=== PATIENT | female | born 1945 | race Caucasian/White ===

== ENCOUNTER 2017-11-29 10:02 | Day surgery (SDC) | payer MEDICARE ==
[~2017-11-29] VITALS: Ht 160 cm; Wt 103.6 kg
[2017-11-29] MEDS ORDERED: fentaNYL/PF 50MCG/1 ML 2ML syringe ONE (10:23)
[2017-11-29] MEDS ORDERED: LIDOcaine Viscous 15ml cup ONE (10:24)
[2017-11-29] MEDS ORDERED: MIDAZolam 5mg/5ml vial ONE (10:24)
[2017-11-29] MEDS ORDERED: HYDR-565 PO (10:38)
[2017-11-29] MEDS ORDERED: DIPH25CA83 PO (10:40)
[2017-11-29] MEDS ORDERED: CHOL100062 PO (10:40)
[2017-11-29] MEDS ORDERED: GLYB5TAB7 PO (10:40)
[2017-11-29] MEDS ORDERED: LOSA1TAB39 PO (10:42)
[2017-11-29 10:45] VITALS: BP 148/64
[2017-11-29] MEDS ORDERED: METO50TA17 PO (10:45)
[2017-11-29] MEDS ORDERED: SIMV20TA5 PO (10:46)
[2017-11-29] MEDS ORDERED: COU1T PO (10:46)
[2017-11-29] MEDS ORDERED: CLIN-79 PO (10:47)
[2017-11-29 11:08] VITALS: BP 137/68
[2017-11-29 11:18] VITALS: BP 130/70
[2017-11-29 11:28] VITALS: BP 122/72
[2017-11-29 11:38] VITALS: BP 118/64
[2017-11-29 11:48] VITALS: BP 121/80
== END 2017-11-29 11:50 | disposition home or self-care (01) ==
LOC: GI LAB 10:02
PROVIDERS: ATTEND Internal Medicine Gastroenterology
DX: K44.9 Diaphragmatic hernia without obstruction or gangrene (principal); K31.89 Other diseases of stomach and duodenum; I10 Essential (primary) hypertension; I48.91 Unspecified atrial fibrillation; E11.9 Type 2 diabetes mellitus without complications; Z90.49 Acquired absence of other specified parts of digestive tract; Z72.89 Other problems related to lifestyle; Z79.82 Long term (current) use of aspirin; Z79.4 Long term (current) use of insulin; Z79.01 Long term (current) use of anticoagulants; Z88.6 Allergy status to analgesic agent; Z88.1 Allergy status to other antibiotic agents; Z88.8 Allergy status to other drugs, medicaments and biological substances; Z79.899 Other long term (current) drug therapy; Z98.890 Other specified postprocedural states; Z87.891 Personal history of nicotine dependence
CPT/HCPCS: 43235; G0500; J2250; J3010; J7030; A4620

== ENCOUNTER 2017-12-02 19:18 | Inpatient (IN) | payer MEDICARE ==
[~2017-12-02] VITALS: Ht 160 cm; Wt 100.0 kg
[~2017-12-02 19:18] MED LIST: CHOL100062 PO; CLIN-79 PO; COU1T PO; DIPH25CA83 PO; GLYB5TAB7 PO; HYDR-565 PO; LOSA1TAB39 PO; METO50TA17 PO; SIMV20TA5 PO
[2017-12-02] MEDS ORDERED: pantoprazole IV 80 MG in normal saline 100ml IV soln 100 ML IV ONE (20:15)
[2017-12-02] MEDS: pantoprazole 40MG/NS 100ML BAG 100 ML IV SCH ×2 (20:35→21:20)
[2017-12-02 20:38] LABS: BASOPHILS % (AUTO) 0.6 % (0-1); EOSINOPHILS # (AUTO) 0.2 X10'3 (0-0.9); HEMATOCRIT 27.1 % (35.0-45.0); HEMOGLOBIN 9.4 g/dl (12.0-16.0); LYMPHOCYTES # (AUTO) 1.3 X10'3 (1.1-4.8); LYMPHOCYTES % (AUTO) 16.7 % (21-51); MEAN CORPUSCULAR HGB CONC 34.7 % (33.0-36.5); MEAN CORPUSCULAR VOLUME 92.2 FL (78-98); MEAN PLATELET VOLUME 7.8 FL (7.4-10.4); MONOCYTES # (AUTO) 0.4 X10'3 (0-0.9); MONOCYTES % (AUTO) 4.9 % (2-12); NEUTROPHILS # (AUTO) 5.7 X10'3 (1.8-7.7); NEUTROPHILS % (AUTO) 74.8 % (42-75); PLATELET COUNT 277 X10'3 (140-440); RED BLOOD COUNT 2.94 X10'6 (4.20-5.60); RED CELL DISTRIBUTION WIDTH 17.6 % (11.5-14.5); WHITE BLOOD COUNT 7.7 X10'3 (4.5-11.0)
[2017-12-02 20:50] LABS: PARTIAL THROMBOPLASTIN TIME 40 SECONDS (22-32); PROTHROMBIN TIME 29.9 SECONDS (9.0-12.0)
[2017-12-02 20:53] LABS: ALANINE AMINOTRANSFERASE 19 U/L (12-78); ALBUMIN 3.2 G/DL (3.4-5.0); ALBUMIN/GLOBULIN RATIO 0.9 (1.1-1.5); ALKALINE PHOSPHATASE 67 IU/L (46-116); ANION GAP 10 (8-16); ASPARTATE AMINO TRANSFERASE 16 U/L (10-37); BILIRUBIN,TOTAL 0.7 MG/DL (0.1-1.0); BLOOD UREA NITROGEN 27 MG/DL (7-18); BUN/CREATININE RATIO 21.1 (6.6-38.0); CALCIUM 8.7 MG/DL (8.5-10.1); CHLORIDE 100 MMOL/L (99-107); CREATININE 1.28 MG/DL (0.40-0.90); GLUCOSE 327 MG/DL (70-104); POTASSIUM 4.3 MMOL/L (3.5-5.1); SODIUM 136 MMOL/L (135-145); TOTAL CARBON DIOXIDE 25.6 MMOL/L (24-32); TOTAL PROTEIN 6.9 G/DL (6.4-8.2); eGFR 41 ML/MIN
[2017-12-02] MEDS ORDERED: pantoprazole 40MG/NS 100ML BAG 100 ML IV ONE (21:05)
[2017-12-02] MEDS ORDERED: ondansetron/PF 4mg/2ml inj IV PRN (22:00)
[2017-12-02] MEDS ORDERED: acetaminophen 325mg tablet PO PRN ×2 (22:00)
[2017-12-02] MEDS ORDERED: magnesium hydroxide 30ml (MOM) UD suspension PO PRN (22:00)
[2017-12-02] MEDS ORDERED: mag hydrox/Alum hydrox/simeth 30ml oral suspension PO PRN (22:00)
[2017-12-02] MEDS ORDERED: diphenhydrAMINE 25mg capsule PO PRN (22:05)
[2017-12-02] MEDS ORDERED: insulin Lispro (HumaLOG) vial - multi-dose SQ SCH (22:05)
[2017-12-02] MEDS ORDERED: dextrose 50%-water 50ml dispensing syringe IV PRN ×2 (22:05)
[2017-12-02] MEDS ORDERED: dextrose ORAL solution 15 GM/59 ML bottle PO PRN ×2 (22:05)
[2017-12-02] MEDS ORDERED: glucagon, human recombinant 1mg kit SUBCUT PRN (22:05)
[2017-12-02] MEDS ORDERED: cyclobenzaprine 10mg tablet PO PRN (22:05)
[2017-12-02] MEDS ORDERED: MESSAGE TO PHARMACY PO ONE (22:05)
[2017-12-02] MEDS ORDERED: CHOL10002 PO (22:29)
[2017-12-02] MEDS: normal saline 1000ml 1,000 ML IV SCH (22:30)
[2017-12-02] MEDS: atorvastatin 10mg tablet PO SCH (22:43)
[2017-12-02] MEDS ORDERED: insulin glargine (Lantus) pen - multi-dose SQ ONE (22:49)
[2017-12-02] MEDS: insulin glargine (Lantus) pen - multi-dose SQ SCH (23:02)
[2017-12-03] MEDS: HYDROcodone/acetaminophen 10/325mg tab PO SCH ×4 (02:07→20:46)
[2017-12-03 06:10] LABS: BASOPHILS % (AUTO) 0.4 % (0-1); EOSINOPHILS # (AUTO) 0.3 X10'3 (0-0.9); EOSINOPHILS % (AUTO) 4.7 % (0-6); HEMOGLOBIN 8.6 g/dl (12.0-16.0); LYMPHOCYTES # (AUTO) 1.7 X10'3 (1.1-4.8); LYMPHOCYTES % (AUTO) 25.6 % (21-51); MEAN CORPUSCULAR HEMOGLOBIN 31.6 PG (27.0-31.0); MEAN CORPUSCULAR HGB CONC 34.3 % (33.0-36.5); MEAN CORPUSCULAR VOLUME 92.2 FL (78-98); MEAN PLATELET VOLUME 7.5 FL (7.4-10.4); MONOCYTES # (AUTO) 0.5 X10'3 (0-0.9); MONOCYTES % (AUTO) 7.1 % (2-12); NEUTROPHILS # (AUTO) 4.1 X10'3 (1.8-7.7); NEUTROPHILS % (AUTO) 62.2 % (42-75); PLATELET COUNT 245 X10'3 (140-440); RED BLOOD COUNT 2.71 X10'6 (4.20-5.60); WHITE BLOOD COUNT 6.6 X10'3 (4.5-11.0)
[2017-12-03 06:23] LABS: PROTHROMBIN TIME 30.3 SECONDS (9.0-12.0)
[2017-12-03 06:54] LABS: ALBUMIN 3.1 G/DL (3.4-5.0); ANION GAP 9 (8-16); BLOOD UREA NITROGEN 21 MG/DL (7-18); BUN/CREATININE RATIO 18.4 (6.6-38.0); CALCIUM 8.6 MG/DL (8.5-10.1); CHLORIDE 105 MMOL/L (99-107); CREATININE 1.14 MG/DL (0.40-0.90); GLUCOSE 153 MG/DL (70-104); POTASSIUM 4.1 MMOL/L (3.5-5.1); SODIUM 140 MMOL/L (135-145); TOTAL CARBON DIOXIDE 25.9 MMOL/L (24-32); eGFR 47 ML/MIN
[2017-12-03 06:58] LABS: CLARITY,URINE SLIGHTLY CLOUDY (Clear); COLOR,URINE YELLOW (Yellow); GLUCOSE, URINE NEGATIVE (Neg); KETONES,URINE NEGATIVE (Neg); LEUKOCYTE ESTERASE ,URINE SMALL (Neg); NITRITES, URINE NEGATIVE (Neg); OCCULT BLOOD,URINE NEGATIVE (Neg); PH,URINE 5.5 (4.8-8.0); PROTEIN,URINE NEGATIVE (Neg); UROBILINOGEN,URINE 0.2 E.U/dL (0.2-1.0)
[2017-12-03 07:03] LABS: UA COLLECTION TYPE CLN CATCH MIDSTREAM
[2017-12-03 07:08] LABS: BACTERIA,URINE FEW /HPF (Neg); RBC,URINE 0-2 /HPF (0-2); SQUAMOUS EPITHELIAL CELL,UR MANY /LPF (FEW); WBC,URINE 0-4 /HPF (0-4)
[2017-12-03] MEDS: normal saline 1000ml 1,000 ML IV SCH ×2 (07:57→20:47)
[2017-12-03] MEDS: HYDROchlorothiazide 25mg tablet PO SCH (08:32)
[2017-12-03] MEDS: metoprolol tartrate 50mg tablet PO SCH (08:32)
[2017-12-03] MEDS: losartan 50mg tablet PO SCH (08:32)
[2017-12-03] MEDS ORDERED: CYCL-1 (09:22)
[2017-12-03 19:30] VITALS: BP 106/50
[2017-12-03] MEDS: atorvastatin 10mg tablet PO SCH (20:46)
[2017-12-03] MEDS: insulin glargine (Lantus) pen - multi-dose SQ SCH (22:15)
[2017-12-04] VITALS: BP 141/50
[2017-12-04] MEDS: HYDROcodone/acetaminophen 10/325mg tab PO SCH ×4 (02:00→20:06)
[2017-12-04] MEDS: normal saline 1000ml 1,000 ML IV SCH ×3 (03:57→20:06)
[2017-12-04 05:13] LABS: BASOPHILS % (AUTO) 0.7 % (0-1); EOSINOPHILS # (AUTO) 0.3 X10'3 (0-0.9); EOSINOPHILS % (AUTO) 5.1 % (0-6); HEMATOCRIT 24.4 % (35.0-45.0); HEMOGLOBIN 8.3 g/dl (12.0-16.0); LYMPHOCYTES # (AUTO) 1.7 X10'3 (1.1-4.8); LYMPHOCYTES % (AUTO) 32.6 % (21-51); MEAN CORPUSCULAR HEMOGLOBIN 31.5 PG (27.0-31.0); MEAN CORPUSCULAR VOLUME 92.5 FL (78-98); MEAN PLATELET VOLUME 8.5 FL (7.4-10.4); MONOCYTES # (AUTO) 0.4 X10'3 (0-0.9); MONOCYTES % (AUTO) 7.9 % (2-12); NEUTROPHILS # (AUTO) 2.8 X10'3 (1.8-7.7); NEUTROPHILS % (AUTO) 53.7 % (42-75); PLATELET COUNT 225 X10'3 (140-440); RED BLOOD COUNT 2.64 X10'6 (4.20-5.60); RED CELL DISTRIBUTION WIDTH 16.8 % (11.5-14.5); WHITE BLOOD COUNT 5.2 X10'3 (4.5-11.0)
[2017-12-04 05:22] LABS: INR 2.8 INR; PROTHROMBIN TIME 28.2 SECONDS (9.0-12.0)
[2017-12-04 05:29] LABS: ALBUMIN 2.9 G/DL (3.4-5.0); ANION GAP 8 (8-16); BLOOD UREA NITROGEN 15 MG/DL (7-18); BUN/CREATININE RATIO 12.9 (6.6-38.0); CALCIUM 8.4 MG/DL (8.5-10.1); CHLORIDE 106 MMOL/L (99-107); CREATININE 1.16 MG/DL (0.40-0.90); GLUCOSE 109 MG/DL (70-104); POTASSIUM 4.2 MMOL/L (3.5-5.1); SODIUM 141 MMOL/L (135-145); TOTAL CARBON DIOXIDE 27.1 MMOL/L (24-32); eGFR 46 ML/MIN
[2017-12-04] MEDS ORDERED: heparin sodium, porcine/PF 100unit/ml 5ML syringe ONE (06:54)
[2017-12-04 07:00] VITALS: BP 121/53
[2017-12-04] MEDS: metoprolol tartrate 50mg tablet PO SCH (09:30)
[2017-12-04] MEDS: losartan 50mg tablet PO SCH (09:30)
[2017-12-04] MEDS: HYDROchlorothiazide 25mg tablet PO SCH (09:30)
[2017-12-04 12:00] VITALS: BP 128/49
[2017-12-04 12:12] LABS: OCCULT BLOOD STOOL POSITIVE (Neg)
[2017-12-04 20:00] VITALS: BP 110/55
[2017-12-04] MEDS: atorvastatin 10mg tablet PO SCH (20:06)
[2017-12-04] MEDS: insulin glargine (Lantus) pen - multi-dose SQ SCH (21:00)
[2017-12-05] VITALS: BP 109/46
[2017-12-05] MEDS: HYDROcodone/acetaminophen 10/325mg tab PO SCH ×2 (02:32→07:22)
[2017-12-05 05:00] LABS: BASOPHILS % (AUTO) 0.4 % (0-1); EOSINOPHILS # (AUTO) 0.2 X10'3 (0-0.9); EOSINOPHILS % (AUTO) 4.3 % (0-6); HEMATOCRIT 24.9 % (35.0-45.0); HEMOGLOBIN 8.5 g/dl (12.0-16.0); LYMPHOCYTES # (AUTO) 1.5 X10'3 (1.1-4.8); LYMPHOCYTES % (AUTO) 31.3 % (21-51); MEAN CORPUSCULAR HEMOGLOBIN 31.8 PG (27.0-31.0); MEAN CORPUSCULAR VOLUME 93.3 FL (78-98); MEAN PLATELET VOLUME 8.2 FL (7.4-10.4); MONOCYTES # (AUTO) 0.4 X10'3 (0-0.9); MONOCYTES % (AUTO) 8.1 % (2-12); NEUTROPHILS # (AUTO) 2.6 X10'3 (1.8-7.7); NEUTROPHILS % (AUTO) 55.9 % (42-75); PLATELET COUNT 222 X10'3 (140-440); RED BLOOD COUNT 2.67 X10'6 (4.20-5.60); WHITE BLOOD COUNT 4.6 X10'3 (4.5-11.0)
[2017-12-05 05:10] LABS: PROTHROMBIN TIME 30.3 SECONDS (9.0-12.0)
[2017-12-05 05:20] LABS: ANION GAP 10 (8-16); BLOOD UREA NITROGEN 13 MG/DL (7-18); BUN/CREATININE RATIO 11.3 (6.6-38.0); CALCIUM 8.5 MG/DL (8.5-10.1); CHLORIDE 106 MMOL/L (99-107); CREATININE 1.15 MG/DL (0.40-0.90); GLUCOSE 107 MG/DL (70-104); POTASSIUM 3.8 MMOL/L (3.5-5.1); SODIUM 142 MMOL/L (135-145); TOTAL CARBON DIOXIDE 26.4 MMOL/L (24-32); eGFR 46 ML/MIN
[2017-12-05] MEDS: metoprolol tartrate 50mg tablet PO SCH (07:21)
[2017-12-05] MEDS: losartan 50mg tablet PO SCH (07:21)
[2017-12-05] MEDS: HYDROchlorothiazide 25mg tablet PO SCH (07:21)
[2017-12-05 07:28] VITALS: BP 122/62
[2017-12-05] MEDS ORDERED: ESOM40CA30 PO (08:58)
== END 2017-12-05 10:20 | disposition home or self-care (01) | DRG 378 ==
LOC: ER 19:19 → ED HOLD 21:57 → SUR 3N 12-03 19:32
PROVIDERS: ADMIT Internal Medicine; ATTEND Internal Medicine
DX: K92.2 Gastrointestinal hemorrhage, unspecified (principal); D68.51 Activated protein C resistance; N17.9 Acute kidney failure, unspecified; E11.22 Type 2 diabetes mellitus with diabetic chronic kidney disease; I48.91 Unspecified atrial fibrillation; E86.0 Dehydration; E78.5 Hyperlipidemia, unspecified; I12.9 Hypertensive chronic kidney disease with stage 1 through stage 4 chronic kidney disease, or unspecified chronic kidney disease; N18.9 Chronic kidney disease, unspecified; Z79.84 Long term (current) use of oral hypoglycemic drugs; Z79.899 Other long term (current) drug therapy; Z79.01 Long term (current) use of anticoagulants; Z88.6 Allergy status to analgesic agent; Z88.1 Allergy status to other antibiotic agents; Z88.5 Allergy status to narcotic agent; Z88.8 Allergy status to other drugs, medicaments and biological substances; Z82.3 Family history of stroke
CPT/HCPCS: 36415; 71045; 78278; 80048; 80053; 81001; 82272; 82948; 85025; 85610; 85730; 86885; 86900; 86901; 87070; 93005; 96374; 96376; 99285; A9560; C9113; J1642; J1815; J7030

== ENCOUNTER 2018-07-08 09:00 | Day surgery (SDC) | payer MEDICARE ==
[2018-07-08] VITALS (9 sets, daily range): BP systolic 104–136; BP diastolic 66–114
[~2018-07-08] VITALS: Ht 167.6 cm; Wt 105.4 kg
[~2018-07-08 09:00] MED LIST changes: +CHOL10002 PO; -CHOL100062 PO; -CLIN-79 PO; -COU1T PO; +CYCL-1; +ESOM40CA30 PO; -HYDR-565 PO
[2018-07-08] MEDS ORDERED: sod bicarbonate 150mEq in D5W 1,150 ML IV ONE (09:25)
[2018-07-08] MEDS ORDERED: diphenhydrAMINE 25mg capsule PO PRN (09:25)
[2018-07-08] MEDS ORDERED: midazolam 2 mg/2 ml injection ONE ×2 (09:39→10:57)
[2018-07-08] MEDS ORDERED: fentaNYL/PF 50MCG/1 ML 2ML syringe ONE (09:39)
[2018-07-08] MEDS ORDERED: iohexol 350 MG/ML 50ML vial IV ONE (09:40)
[2018-07-08] MEDS ORDERED: normal saline 1000ml 1,000 ML IV SCH (09:40)
[2018-07-08] MEDS ORDERED: LIDOcaine 1% 30ml preserv. free vial ONE (09:40)
[2018-07-08] MEDS ORDERED: iohexol 350MG/ML 100ml bottle IV ONE (09:40)
[2018-07-08] MEDS ORDERED: COU2.5T PO (09:43)
[2018-07-08] MEDS ORDERED: LASIX PO (09:45)
[2018-07-08] MEDS ORDERED: POTA8CAP9 PO (09:47)
[2018-07-08] MEDS ORDERED: MAGN400C PO (09:48)
[2018-07-08] MEDS ORDERED: MELA3TAB PO (09:48)
[2018-07-08] MEDS ORDERED: OMEP40CA37 PO (09:51)
[2018-07-08 09:54] LABS: ALBUMIN 3.5 G/DL (3.4-5.0); ANION GAP 9 (8-16); BLOOD UREA NITROGEN 27 MG/DL (7-18); BUN/CREATININE RATIO 17.5 (6.6-38.0); CALCIUM 9.5 MG/DL (8.5-10.1); CHLORIDE 98 MMOL/L (99-107); CREATININE 1.54 MG/DL (0.40-0.90); GLUCOSE 234 MG/DL (70-104); MAGNESIUM 1.8 MG/DL (1.5-2.4); POTASSIUM 3.5 MMOL/L (3.5-5.1); SODIUM 138 MMOL/L (135-145); TOTAL CARBON DIOXIDE 31.2 MMOL/L (24-32); eGFR 33 ML/MIN
[2018-07-08 09:56] LABS: BASOPHILS # (AUTO) 0.1 X10'3 (0-0.2); EOSINOPHILS # (AUTO) 0.2 X10'3 (0-0.9); EOSINOPHILS % (AUTO) 2.9 % (0-6); HEMATOCRIT 34.4 % (35.0-45.0); LYMPHOCYTES # (AUTO) 1.1 X10'3 (1.1-4.8); LYMPHOCYTES % (AUTO) 18.3 % (21-51); MEAN CORPUSCULAR HEMOGLOBIN 26.6 PG (27.0-31.0); MEAN CORPUSCULAR HGB CONC 31.9 % (33.0-36.5); MEAN CORPUSCULAR VOLUME 83.4 FL (78-98); MEAN PLATELET VOLUME 9.2 FL (7.4-10.4); MONOCYTES # (AUTO) 0.4 X10'3 (0-0.9); NEUTROPHILS # (AUTO) 4.3 X10'3 (1.8-7.7); NEUTROPHILS % (AUTO) 71.8 % (42-75); PLATELET COUNT 217 X10'3 (140-440); RED BLOOD COUNT 4.13 X10'6 (4.20-5.60); RED CELL DISTRIBUTION WIDTH 28.4 % (11.5-14.5); WHITE BLOOD COUNT 6.1 X10'3 (4.5-11.0)
[2018-07-08 10:03] LABS: INR 1.6 INR; PROTHROMBIN TIME 16.3 SECONDS (9.0-12.0)
[2018-07-08 10:30] LABS: PLATELET ESTIMATE NORMAL
[2018-07-08 10:31] LABS: ANISOCYTOSIS 3+; MICROCYTOSIS 1+
[2018-07-08] MEDS ORDERED: HYDROcodone/acetaminophen 10/325mg tab PO ONE (12:30)
== END 2018-07-08 15:10 | disposition home or self-care (01) ==
LOC: SSTAY O 09:00
PROVIDERS: ATTEND Internal Medicine Cardiovascular Disease
DX: I25.10 Atherosclerotic heart disease of native coronary artery without angina pectoris (principal); I35.0 Nonrheumatic aortic (valve) stenosis; I48.91 Unspecified atrial fibrillation; I45.81 Long QT syndrome; I10 Essential (primary) hypertension; E78.5 Hyperlipidemia, unspecified; E11.9 Type 2 diabetes mellitus without complications; D68.51 Activated protein C resistance; Z87.891 Personal history of nicotine dependence; Z90.49 Acquired absence of other specified parts of digestive tract; Z87.19 Personal history of other diseases of the digestive system; Z72.89 Other problems related to lifestyle; Z86.11 Personal history of tuberculosis; Z79.01 Long term (current) use of anticoagulants; Z88.0 Allergy status to penicillin; Z88.5 Allergy status to narcotic agent; Z88.1 Allergy status to other antibiotic agents; Z88.6 Allergy status to analgesic agent; Z88.8 Allergy status to other drugs, medicaments and biological substances; Z79.899 Other long term (current) drug therapy; Z98.890 Other specified postprocedural states
CPT/HCPCS: 36415; 80048; 82948; 83735; 85025; 85610; 93005; 93460; 99152; 99153; A6257; C1760; J1644; J2250; J3010; J3490; J7030; Q0163; Q9967; A4620; C1769; C1894

== ENCOUNTER 2019-03-10 21:22 | Emergency (ER) | payer MEDICARE ==
[~2019-03-10] VITALS: Ht 170.2 cm; Wt 105.5 kg
[~2019-03-10 21:22] MED LIST changes: +COU2.5T PO; -DIPH25CA83 PO; -ESOM40CA30 PO; +LASIX PO; -LOSA1TAB39 PO; +MAGN400C PO; +MELA3TAB64 PO; +OMEP40CA13 PO; +POTA8CAP20 PO
--- NOTE | 2019-03-10 22:32 | NUR ---
Patient is A&O x2, PATEL and is resting comfortably on gurney. Family is at the bedside.
[2019-03-11 00:02] LABS: CLARITY,URINE CLEAR (Clear); COLOR,URINE YELLOW (Yellow); GLUCOSE, URINE 500 mg/dl (Neg); KETONES,URINE NEGATIVE (Neg); LEUKOCYTE ESTERASE ,URINE NEGATIVE (Neg); NITRITES, URINE NEGATIVE (Neg); OCCULT BLOOD,URINE NEGATIVE (Neg); PROTEIN,URINE NEGATIVE (Neg); UROBILINOGEN,URINE 0.2 E.U/dL (0.2-1.0)
[2019-03-11 00:07] LABS: UA COLLECTION TYPE CLN CATCH MIDSTREAM
--- NOTE | 2019-03-11 00:09 | NUR ---
Patient is resting comfortably on gurney, family is at bedside.
[2019-03-11 00:22] LABS: BASOPHILS % (AUTO) 0.8 % (0-1); EOSINOPHILS # (AUTO) 0.1 X10'3 (0-0.9); EOSINOPHILS % (AUTO) 2.8 % (0-6); HEMATOCRIT 32.8 % (35.0-45.0); HEMOGLOBIN 11.2 g/dl (12.0-16.0); LYMPHOCYTES # (AUTO) 1.2 X10'3 (1.1-4.8); MEAN CORPUSCULAR HEMOGLOBIN 32.3 PG (27.0-31.0); MEAN CORPUSCULAR VOLUME 94.8 FL (78-98); MEAN PLATELET VOLUME 7.8 FL (7.4-10.4); MONOCYTES # (AUTO) 0.4 X10'3 (0-0.9); MONOCYTES % (AUTO) 8.2 % (2-12); NEUTROPHILS # (AUTO) 2.8 X10'3 (1.8-7.7); NEUTROPHILS % (AUTO) 62.2 % (42-75); PLATELET COUNT 256 X10'3 (140-440); RED BLOOD COUNT 3.46 X10'6 (4.20-5.60); RED CELL DISTRIBUTION WIDTH 23.6 % (11.5-14.5); WHITE BLOOD COUNT 4.5 X10'3 (4.5-11.0)
[2019-03-11 00:36] LABS: PARTIAL THROMBOPLASTIN TIME 35 SECONDS (22-32)
[2019-03-11 00:49] LABS: OCCULT BLOOD STOOL POSITIVE (Neg)
[2019-03-11 00:58] LABS: ALANINE AMINOTRANSFERASE 25 U/L (12-78); ALBUMIN 3.4 G/DL (3.4-5.0); ANION GAP 5 (8-16); BLOOD UREA NITROGEN 34 MG/DL (7-18); BUN/CREATININE RATIO 19.3 (6.6-38.0); CALCIUM 9.4 MG/DL (8.5-10.1); CHLORIDE 95 MMOL/L (99-107); CREATININE 1.76 MG/DL (0.40-0.90); GLUCOSE 418 MG/DL (70-104); LIPASE 792 U/L (73-393); POTASSIUM 3.2 MMOL/L (3.5-5.1); SODIUM 135 MMOL/L (135-145); TOTAL CARBON DIOXIDE 34.9 MMOL/L (24-32); eGFR 28 ML/MIN
[2019-03-11 01:16] LABS: ALBUMIN/GLOBULIN RATIO 0.7 (1.1-1.5); ALKALINE PHOSPHATASE 84 IU/L (46-116); ASPARTATE AMINO TRANSFERASE 24 U/L (10-37); BILIRUBIN,TOTAL 1.4 MG/DL (0.1-1.0); TOTAL PROTEIN 8.2 G/DL (6.4-8.2)
[2019-03-11] MEDS ORDERED: carVEDilol 3.125mg tablet PO ONE (01:45)
[2019-03-11] MEDS ORDERED: carVEDilol 3.125mg tablet PO SCH (01:45)
[2019-03-11] MEDS ORDERED: POTA20PA40 PO (01:47)
[2019-03-11] MEDS ORDERED: MELA3TAB64 PO (01:47)
[2019-03-11] MEDS ORDERED: METO50TA17 PO (01:47)
[2019-03-11] MEDS ORDERED: FERR325T28 PO (01:47)
[2019-03-11] MEDS ORDERED: ASPI-1265 PO (01:47)
[2019-03-11] MEDS ORDERED: FLUT16SP2 BOTHNARES (01:47)
[2019-03-11] MEDS ORDERED: TORS10TA17 PO (01:47)
[2019-03-11] MEDS ORDERED: LEVO88TA2 PO (01:47)
[2019-03-11] MEDS ORDERED: CYCL-394 PO (01:47)
[2019-03-11] MEDS ORDERED: HYDR25TA4 PO (01:47)
[2019-03-11] MEDS ORDERED: GLIM1TAB3 PO (01:47)
[2019-03-11] MEDS ORDERED: insulin regular, human 10 units/0.1 ml syringe SQ ONE (01:55)
[2019-03-11] MEDS ORDERED: potassium chloride 10mEq CAPSULE.SA PO STA (01:55)
[2019-03-11] MEDS ORDERED: potassium chloride 10mEq ER tablet PO STA (01:57)
[2019-03-11 02:14] VITALS: BP 126/48
== END 2019-03-11 02:18 | disposition home or self-care (01) ==
LOC: ER 21:23
DX: K92.2 Gastrointestinal hemorrhage, unspecified (principal); E87.6 Hypokalemia; R73.9 Hyperglycemia, unspecified; R06.02 Shortness of breath; M79.89 Other specified soft tissue disorders; R53.1 Weakness; R53.83 Other fatigue; I48.91 Unspecified atrial fibrillation; Z88.0 Allergy status to penicillin; Z88.8 Allergy status to other drugs, medicaments and biological substances; Z88.1 Allergy status to other antibiotic agents; Z88.5 Allergy status to narcotic agent; Z79.82 Long term (current) use of aspirin; Z79.899 Other long term (current) drug therapy; Z95.0 Presence of cardiac pacemaker
CPT/HCPCS: 36415; 71045; 80053; 81003; 82272; 83690; 83880; 84484; 85025; 85610; 85730; 93005; 96372; 99284; J1815

== ENCOUNTER 2019-03-24 12:14 | Day surgery (SDC) | payer MEDICARE ==
[~2019-03-24] VITALS: Ht 170.2 cm; Wt 109.7 kg
[~2019-03-24 12:14] MED LIST changes: +ASPI-1265 PO; -COU2.5T PO; -CYCL-1; +CYCL-394 PO; +FERR325T28 PO; +FLUT16SP2 BOTHNARES; +GLIM1TAB3 PO; -GLYB5TAB7 PO; +HYDR25TA4 PO; -LASIX PO; +LEVO88TA2 PO; -OMEP40CA13 PO; +POTA20PA40 PO; -POTA8CAP20 PO; -SIMV20TA5 PO; +TORS10TA17 PO
[2019-03-24 12:50] VITALS: BP 113/55
[2019-03-24] MEDS ORDERED: SIMV20TA5 PO (12:55)
[2019-03-24] MEDS ORDERED: normal saline 1000ml 1,000 ML IV SCH (13:05)
[2019-03-24 13:36] LABS: ALBUMIN 3.4 G/DL (3.4-5.0); ANION GAP 8 (8-16); BLOOD UREA NITROGEN 19 MG/DL (7-18); BUN/CREATININE RATIO 13.8 (6.6-38.0); CHLORIDE 103 MMOL/L (99-107); CREATININE 1.38 MG/DL (0.40-0.90); GLUCOSE 207 MG/DL (70-104); MAGNESIUM 1.8 MG/DL (1.5-2.4); POTASSIUM 3.6 MMOL/L (3.5-5.1); SODIUM 141 MMOL/L (135-145); TOTAL CARBON DIOXIDE 29.7 MMOL/L (24-32); eGFR 37 ML/MIN
[2019-03-24 13:37] LABS: BASOPHILS # (AUTO) 0.1 X10'3 (0-0.2); BASOPHILS % (AUTO) 1.1 % (0-1); EOSINOPHILS # (AUTO) 0.1 X10'3 (0-0.9); EOSINOPHILS % (AUTO) 2.2 % (0-6); HEMATOCRIT 27.3 % (35.0-45.0); HEMOGLOBIN 9.1 g/dl (12.0-16.0); LYMPHOCYTES % (AUTO) 20.5 % (21-51); MEAN CORPUSCULAR HEMOGLOBIN 33.2 PG (27.0-31.0); MEAN CORPUSCULAR HGB CONC 33.3 g/dL (33.0-36.5); MEAN CORPUSCULAR VOLUME 99.6 FL (78-98); MEAN PLATELET VOLUME 8.2 FL (7.4-10.4); MONOCYTES # (AUTO) 0.4 X10'3 (0-0.9); MONOCYTES % (AUTO) 7.9 % (2-12); NEUTROPHILS # (AUTO) 3.3 X10'3 (1.8-7.7); NEUTROPHILS % (AUTO) 68.3 % (42-75); PLATELET COUNT 215 X10'3 (140-440); RED BLOOD COUNT 2.74 X10'6 (4.20-5.60); RED CELL DISTRIBUTION WIDTH 23.3 % (11.5-14.5); WHITE BLOOD COUNT 4.9 X10'3 (4.5-11.0)
[2019-03-24] MEDS ORDERED: ceFAZolin 1000mg inj ONE (14:17)
[2019-03-24] MEDS ORDERED: clindamycin 600mg/D5W 50ml 50 ML IV ONE (14:27)
[2019-03-24] MEDS ORDERED: midazolam 2 mg/2 ml injection ONE ×4 (14:27→16:26)
[2019-03-24] MEDS ORDERED: fentaNYL/PF 50MCG/1 ML 2ML syringe ONE ×2 (14:27→16:14)
[2019-03-24] MEDS ORDERED: vancomycin 1,000mg inj ONE ×2 (14:28→15:07)
[2019-03-24] MEDS ORDERED: proCHLORperazine 10 MG/2 ml inj ONE (15:19)
[2019-03-24] MEDS ORDERED: iohexol 350 MG/ML 50ML vial IV ONE ×5 (15:27→16:21)
[2019-03-24] MEDS ORDERED: digoxin 250mcg/ml 2ml ampule ONE (15:46)
[2019-03-24] MEDS ORDERED: metoprolol tartrate 1mg/ml inj IV ONE ×2 (16:03→17:15)
[2019-03-24 17:11] VITALS: BP 105/57
[2019-03-24 17:37] VITALS: BP 111/61
[2019-03-24 17:47] LABS: PLATELET ESTIMATE NORMAL
[2019-03-24 17:48] LABS: ANISOCYTOSIS 3+; POLYCHROMASIA 1+
[2019-03-24 17:52] VITALS: BP 108/61
[2019-03-24 18:07] VITALS: BP 127/61
[2019-03-24 18:37] VITALS: BP 101/47
== END 2019-03-24 19:25 | disposition home or self-care (01) ==
LOC: SSTAY O 12:14
PROVIDERS: ATTEND Internal Medicine Cardiovascular Disease
DX: T82.198A Other mechanical complication of other cardiac electronic device, initial encounter (principal); Y83.8 Other surgical procedures as the cause of abnormal reaction of the patient, or of later complication, without mention of misadventure at the time of the procedure; Y92.89 Other specified places as the place of occurrence of the external cause; I49.8 Other specified cardiac arrhythmias; I50.9 Heart failure, unspecified; I36.1 Nonrheumatic tricuspid (valve) insufficiency; R00.1 Bradycardia, unspecified; R53.83 Other fatigue; I44.7 Left bundle-branch block, unspecified; R42 Dizziness and giddiness; Z95.2 Presence of prosthetic heart valve; I48.2 Chronic atrial fibrillation; R60.9 Edema, unspecified; Z95.0 Presence of cardiac pacemaker; D68.51 Activated protein C resistance; G47.30 Sleep apnea, unspecified
CPT/HCPCS: 33207; 33233; 33234; 36415; 80048; 83735; 85025; 85610; 93005; C1769; C1786; C1887; C1894; C1900; J0690; J0780; J1160; J2250; J3010; J3370; J7030; Q9967; 33225; 33227; 99152; 99153; A4565; A4620; A6258; A6449; J3490

== ENCOUNTER 2019-06-11 10:55 | Emergency (ER) | payer MEDICARE ==
[~2019-06-11] VITALS: Ht 172.7 cm; Wt 107.3 kg
[~2019-06-11 10:55] MED LIST changes: -CYCL-394 PO; -FERR325T28 PO; -GLIM1TAB3 PO; -MAGN400C PO; +SIMV20TA5 PO
[2019-06-11 11:48] LABS: BASOPHILS % (AUTO) 0.8 % (0-1); EOSINOPHILS # (AUTO) 0.1 X10'3 (0-0.9); HEMATOCRIT 33.8 % (35.0-45.0); HEMOGLOBIN 11.5 g/dl (12.0-16.0); LYMPHOCYTES % (AUTO) 16.8 % (21-51); MEAN CORPUSCULAR HEMOGLOBIN 34.2 PG (27.0-31.0); MEAN CORPUSCULAR HGB CONC 34.1 g/dL (33.0-36.5); MEAN CORPUSCULAR VOLUME 100.4 FL (78-98); MEAN PLATELET VOLUME 8.2 FL (7.4-10.4); MONOCYTES # (AUTO) 0.4 X10'3 (0-0.9); MONOCYTES % (AUTO) 7.4 % (2-12); NEUTROPHILS # (AUTO) 4.2 X10'3 (1.8-7.7); PLATELET COUNT 202 X10'3 (140-440); RED BLOOD COUNT 3.36 X10'6 (4.20-5.60); RED CELL DISTRIBUTION WIDTH 15.4 % (11.5-14.5); WHITE BLOOD COUNT 5.8 X10'3 (4.5-11.0)
[2019-06-11 12:13] LABS: CLARITY,URINE CLEAR (Clear); COLOR,URINE STRAW (Yellow); GLUCOSE, URINE 100 mg/dl (Neg); KETONES,URINE NEGATIVE (Neg); LEUKOCYTE ESTERASE ,URINE TRACE (Neg); NITRITES, URINE NEGATIVE (Neg); OCCULT BLOOD,URINE NEGATIVE (Neg); PH,URINE 5.5 (4.8-8.0); PROTEIN,URINE NEGATIVE (Neg); UROBILINOGEN,URINE 0.2 E.U/dL (0.2-1.0)
[2019-06-11 12:13] LABS: ALANINE AMINOTRANSFERASE 20 U/L (12-78); ALBUMIN 3.6 G/DL (3.4-5.0); ALBUMIN/GLOBULIN RATIO 0.8 (1.1-1.5); ALKALINE PHOSPHATASE 80 IU/L (46-116); AMYLASE 46 U/L (25-115); ANION GAP 8 (8-16); ASPARTATE AMINO TRANSFERASE 23 U/L (10-37); BILIRUBIN,TOTAL 1.2 MG/DL (0.1-1.0); BLOOD UREA NITROGEN 13 MG/DL (7-18); BUN/CREATININE RATIO 9.4 (6.6-38.0); CALCIUM 9.5 MG/DL (8.5-10.1); CHLORIDE 104 MMOL/L (99-107); CREATININE 1.38 MG/DL (0.40-0.90); GLUCOSE 235 MG/DL (70-104); LIPASE 336 U/L (73-393); POTASSIUM 4.4 MMOL/L (3.5-5.1); SODIUM 140 MMOL/L (135-145); TOTAL CARBON DIOXIDE 28.4 MMOL/L (24-32); TOTAL PROTEIN 8.1 G/DL (6.4-8.2); eGFR 37 ML/MIN
[2019-06-11 12:16] LABS: UA COLLECTION TYPE CLN CATCH MIDSTREAM
[2019-06-11 12:21] LABS: MUCUS STRANDS FEW /LPF (Neg); SQUAMOUS EPITHELIAL CELL,UR FEW /LPF (FEW)
[2019-06-11 12:22] LABS: BACTERIA,URINE FEW /HPF (Neg); RBC,URINE 0-2 /HPF (0-2); WBC CLUMPS,URINE FEW /HPF (NEGATIVE); WBC,URINE 0-4 /HPF (0-4)
[2019-06-11 14:35] VITALS: BP 128/90
[2019-06-11] MEDS ORDERED: CEPH500C5 PO (15:03)
[2019-06-11] MEDS ORDERED: BACDS PO (15:03)
[2019-06-11] MEDS ORDERED: HYDR-3965 PO (15:05)
== END 2019-06-11 15:17 | disposition home or self-care (01) ==
LOC: ER 10:55
DX: R10.32 Left lower quadrant pain (principal); K59.00 Constipation, unspecified; I48.91 Unspecified atrial fibrillation; Z88.0 Allergy status to penicillin; Z88.5 Allergy status to narcotic agent; Z88.1 Allergy status to other antibiotic agents; Z88.8 Allergy status to other drugs, medicaments and biological substances; Z79.82 Long term (current) use of aspirin; Z79.899 Other long term (current) drug therapy
CPT/HCPCS: 36415; 74176; 80053; 81001; 82150; 83690; 85025; 85610; 87077; 87088; 87186; 99284

== ENCOUNTER 2019-10-13 14:43 | Emergency (ER) | payer MEDICARE ==
[~2019-10-13] VITALS: Ht 170.2 cm; Wt 103.2 kg
[~2019-10-13 14:43] MED LIST changes: +CEPH500C5 PO; +SIMV-42 PO; -SIMV20TA5 PO
[2019-10-13 17:10] LABS: BASOPHILS % (AUTO) 0.8 % (0-1); EOSINOPHILS # (AUTO) 0.2 X10'3 (0-0.9); EOSINOPHILS % (AUTO) 2.9 % (0-6); HEMATOCRIT 36.1 % (35.0-45.0); HEMOGLOBIN 12.2 g/dl (12.0-16.0); LYMPHOCYTES # (AUTO) 1.4 X10'3 (1.1-4.8); LYMPHOCYTES % (AUTO) 23.6 % (21-51); MEAN CORPUSCULAR HEMOGLOBIN 32.3 PG (27.0-31.0); MEAN CORPUSCULAR HGB CONC 33.7 g/dL (33.0-36.5); MEAN CORPUSCULAR VOLUME 95.9 FL (78-98); MEAN PLATELET VOLUME 8.2 FL (7.4-10.4); MONOCYTES # (AUTO) 0.4 X10'3 (0-0.9); MONOCYTES % (AUTO) 6.9 % (2-12); NEUTROPHILS % (AUTO) 65.8 % (42-75); PLATELET COUNT 212 X10'3 (140-440); RED BLOOD COUNT 3.77 X10'6 (4.20-5.60); RED CELL DISTRIBUTION WIDTH 15.6 % (11.5-14.5); WHITE BLOOD COUNT 6.1 X10'3 (4.5-11.0)
[2019-10-13 17:32] LABS: ALANINE AMINOTRANSFERASE 9 U/L (12-78); ALBUMIN 3.8 G/DL (3.4-5.0); ALBUMIN/GLOBULIN RATIO 0.9 (1.1-1.5); ALKALINE PHOSPHATASE 86 IU/L (46-116); ANION GAP 13 (8-16); ASPARTATE AMINO TRANSFERASE 24 U/L (10-37); BILIRUBIN,TOTAL 1.7 MG/DL (0.1-1.0); BLOOD UREA NITROGEN 15 MG/DL (7-18); BUN/CREATININE RATIO 12.2 (6.6-38.0); CALCIUM 9.6 MG/DL (8.5-10.1); CHLORIDE 104 MMOL/L (99-107); CREATININE 1.23 MG/DL (0.40-0.90); GLUCOSE 124 MG/DL (70-104); LIPASE 176 U/L (73-393); POTASSIUM 4.3 MMOL/L (3.5-5.1); SODIUM 141 MMOL/L (135-145); TOTAL CARBON DIOXIDE 24.4 MMOL/L (24-32); TOTAL PROTEIN 8.2 G/DL (6.4-8.2); eGFR 43 ML/MIN
[2019-10-13] MEDS ORDERED: docusate sod 100mg capsule PO ONE (19:35)
[2019-10-13] MEDS ORDERED: magnesium hydroxide 30ml (MOM) UD suspension PO ONE (19:35)
[2019-10-13 21:43] VITALS: BP 148/94
[2019-10-13 21:45] LABS: CLARITY,URINE CLEAR (Clear); COLOR,URINE STRAW (Yellow); GLUCOSE, URINE NEGATIVE (Neg); KETONES,URINE NEGATIVE (Neg); LEUKOCYTE ESTERASE ,URINE NEGATIVE (Neg); NITRITES, URINE NEGATIVE (Neg); OCCULT BLOOD,URINE NEGATIVE (Neg); PH,URINE 6.5 (4.8-8.0); PROTEIN,URINE NEGATIVE (Neg); UROBILINOGEN,URINE 0.2 E.U/dL (0.2-1.0)
[2019-10-13 21:46] LABS: UA COLLECTION TYPE VOIDED
[2019-10-13] MEDS ORDERED: POLY17PO10 PO (22:00)
[2019-10-13] MEDS ORDERED: DOCU100C40 PO (22:00)
[2019-10-13] MEDS ORDERED: HYDR-3965 PO (22:00)
== END 2019-10-13 22:07 | disposition home or self-care (01) ==
LOC: ER 14:43
DX: K59.00 Constipation, unspecified (principal); F03.90 Unspecified dementia, unspecified severity, without behavioral disturbance, psychotic disturbance, mood disturbance, and anxiety; I48.91 Unspecified atrial fibrillation; E78.00 Pure hypercholesterolemia, unspecified; E11.9 Type 2 diabetes mellitus without complications; Z88.0 Allergy status to penicillin; Z88.5 Allergy status to narcotic agent; Z88.8 Allergy status to other drugs, medicaments and biological substances; Z79.2 Long term (current) use of antibiotics; Z79.82 Long term (current) use of aspirin; Z79.899 Other long term (current) drug therapy; Z90.49 Acquired absence of other specified parts of digestive tract; Z86.718 Personal history of other venous thrombosis and embolism
CPT/HCPCS: 36415; 74018; 74176; 80053; 81003; 83690; 85025; 99285